=== PATIENT | female | born 1990 | race Caucasian/White ===

== ENCOUNTER 2017-05-09 21:03 | Emergency (ER) | payer OTHER ==
[2017-05-09] MEDS ORDERED: NS 0.9% 1000 ML* 1,000 ML IV ONE (21:50)
[2017-05-09] MEDS ORDERED: Ketorolac INJ* 30 MG/ML 1 ML VIAL IV ONE (21:50)
[2017-05-09] MEDS ORDERED: diPHENhydraMINE IV* 50 MG/ML 1 ml VIAL (BENADRYL) IV ONE (21:50)
[2017-05-09] MEDS ORDERED: Metoclopramide IV* 5 MG/ML 2 ML VIAL IV SLOW PU ONE (21:52)
[2017-05-09 22:04] LABS: ABS Basophils 0 10^3/ul (0-0.2); ABS Eosinophils 0 10^3/ul (0-0.6); ABS Lymphocytes 1.6 10^3/ul (1.0-4.8); ABS Monocytes 0.8 10^3/ul (0-0.8); ABS Neutrophils 8.8 10^3/ul (1.5-7.7); ABS Nucleated RBC 0 10^3/ul; Eosinophil % 0.2 % (0-6); Hematocrit 42 % (35-47); Hemoglobin 14.4 g/dl (12.0-16.0); Lymphocyte % 14.1 % (25-47); Mean Corpuscular HGB Conc 34 g/dl (31-36); Mean Corpuscular Hemoglobin 30 pg (27-31); Mean Corpuscular Volume 89 fL (80-97); Mean Platelet Volume 9 um3 (7.4-10.4); Nucleated Red Blood Cells % 0; Platelet Count 216 10^3/ul (150-450); Red Blood Count 4.73 10^6/ul (4.0-5.4); Red Cell Distribution Width 13 % (10.5-15); White Blood Count 11.2 10^3/ul (3.5-10.8)
[2017-05-09 22:21] LABS: EGFR Non-African American 94.9 (>60)
--- NOTE | 2017-05-09 23:04 | ED ---
Marisol Stewart Julia, scribed for Dirk Mcqueen MD on 05/09/17 at 2147 . Complex/Multi-Sys Presentation - HPI Summary HPI Summary: This patient is a 26 year old F presenting to [facility] with a chief complaint of migraine headache and numbness in the hands and feet since 14:00 today. Symptoms unchanged by migraine medication that usually provides relief. Symptoms aggravated by light. Patient has migraines roughly two times a week. Patient additionally c/o and loose stool for the past week. Patient denies vomiting. - History Of Current Complaint Chief Complaint: EDGeneral Time Seen by Provider: 05/09/17 21:38 Hx Obtained From: Patient Onset/Duration: Lasting Hours, Lasting Weeks - abdominal pain Timing: Constant Location: Pain At: - abdomen Character: Migraine Aggravating Factor(s): lights Alleviating Factor(s): nothing Associated Signs And Symptoms: Positive: Other - migraine headache and numbness in the hands and feet, abdominal pain, loose stool. Negative: Vomiting - Allergies/Home Medications Allergies/Adverse Reactions: Allergies Allergy/AdvReac Type Severity Reaction Status Date / Time No Known Allergies Allergy Verified 05/09/17 21:23 PMH/Surg Hx/FS Hx/Imm Hx EENT History: Denies: Hx Deafness Neurological History: Reports: Hx Migraine Infectious Disease History: No Infectious Disease History: Denies: Traveled Outside the [place] in Last 30 Days - Social History Occupation: Student Review of Systems Positive: Photophobia Positive: Abdominal Pain, Diarrhea - loose stool. Negative: Vomiting Positive: Headache, Numbness - hands and feet All Other Systems Reviewed And Are Negative: Yes Physical Exam - Summary Physical Exam Summary: VITAL SIGNS: Reviewed. GENERAL: Patient is a well-developed and nourished female who is lying comfortable in the stretcher. Patient is not in any acute respiratory distress. HEAD AND FACE: No signs of trauma. No ecchymosis, hematomas or skull depressions. No sinus tenderness. EYES: PERRLA, EOMI x 2, No injected conjunctiva, no nystagmus. EARS: Hearing grossly intact. Ear canals and tympanic membranes are within normal limits. MOUTH: Oropharynx within normal limits. NECK: Supple, trachea is midline, no adenopathy, no JVD, no carotid bruit, no c- spine tenderness, neck with full ROM. CHEST: Symmetric, no tenderness at palpation LUNGS: Clear to auscultation bilaterally. No wheezing or crackles. CVS: Regular rate and rhythm, S1 and S2 present, no murmurs or gallops appreciated. ABDOMEN: Soft, non-tender. No signs of distention. No rebound no guarding, and no masses palpated. Bowel sounds are normal. EXTREMITIES: FROM in all major joints, no edema, no cyanosis or clubbing. NEURO: Alert and oriented x 3. No acute neurological deficits. Speech is normal and follows commands. SKIN: Dry and warm Triage Information Reviewed: Yes Vital Signs On Initial Exam: Initial Vitals Temp Pulse Resp BP Pulse Ox 98.5 F 105 16 126/80 99 05/09/17 21:21 05/09/17 21:21 05/09/17 21:21 05/09/17 21:21 05/09/17 21:21 Vital Signs Reviewed: Yes Diagnostics - Vital Signs Vital Signs Temp Pulse Resp BP Pulse Ox 05/09/17 21:21 98.5 F 105 16 126/80 99 - Laboratory Result Diagrams: 05/09/17 21:55 05/09/17 21:55 Lab Statement: Any lab studies that have been ordered have been reviewed, and results considered in the medical decision making process. Complex Multi-Symp Course/Dx Course Of Treatment: Patient presents with migraine headache, photophobia, numbness in the hands and feet since 14:00 today. Patient additionally c/o loose stool. I spoke with patient's sister who states she has a history of complicated migraines usually with visual symptoms, including visual loss and neurolocial deficets. She has had a full neurological work up in the past and was negative for stroke and was diagnosed with complicated migraines. Lab results are unremarkable. Patient is given Benadryl, Toradol, Reglan, and IV fluids. - Diagnoses Provider Diagnoses: Migraine Discharge - Discharge Plan Condition: Stable Disposition: HOME Prescriptions: Ketorolac TAB * [Toradol TAB *] 10 mg PO Q6H PRN #20 tab PRN Reason: Headache/Pain Referrals: [facility] - Kadeem RIZO [Primary Care Provider] - If Needed Additional Instructions: A prescription for Toradol is provided. RETURN TO THE EMERGENCY DEPARTMENT FOR CHANGING OR WORSENING SYMPTOMS. The documentation as recorded by the Marisol young Julia accurately reflects the service I personally performed and the decisions made by Charisse tomas Abdul, MD.
[2017-05-09 23:47] VITALS: BP 103/60
== END 2017-05-09 23:45 | disposition home or self-care (01) ==
LOC: ED 21:03
DX: G43.909 Migraine, unspecified, not intractable, without status migrainosus (principal); R20.0 Anesthesia of skin
CPT/HCPCS: 36415; 80053; 82150; 83690; 84443; 84702; 85025; 96374; 96375; 99283; J1200; J1885; J2765